=== PATIENT | male | born 1935 | race Caucasian/White ===

== ENCOUNTER 2016-06-02 05:42 | Inpatient (IN) | payer MEDICARE, BC ==
--- NOTE | ~2016-06-02 | HP ---
History And Physical [place] [address] [place]. [address] NAME: YOANDY GOODEN JR : 36 STATUS : DIS IN PAT#: [id number] AGE: 80 ADM/REG DATE : 06/02/16 MR#: [id number] REPORT SERV DATE: 07/21/16 DICTATED BY: MARJORIE ANDREWS DATE: 07/21/16 REPORT STATUS : Draft TRANSCRIBED BY: MODL DATE: 07/21/16 DATE OF ADMISSION: 06/02/2016 CHIEF COMPLAINT: Metastatic papillary thyroid carcinoma of the right neck. HISTORY OF PRESENT ILLNESS: Mr. Gooden is a 80-year-old gentleman with a long history of papillary thyroid carcinoma, initially treated with total thyroidectomy in 10/2012. He had recurrence in the left neck, treated with a left modified radical neck dissection in 04/2015. Followup to this revealed nuclear thyroid scan showing uptake in the right neck. He had followup ultrasounds to monitor the 1.6 cm right neck level 3 lymph node and once this was determined to be positive on the whole body scan and thyroglobulin levels were elevated, a needle biopsy was performed showing metastatic papillary thyroid carcinoma. He then was scheduled for right modified radical neck dissection today and then he will be admitted postoperatively for further evaluation. PAST MEDICAL HISTORY: Glaucoma, hypertension, gastroesophageal reflux, papillary thyroid carcinoma, atrial fibrillation. PAST SURGICAL HISTORY: Total thyroidectomy, heart pacemaker, cardiac bypass, hernia repair, knee and shoulder replacement. FAMILY HISTORY: None. SOCIAL HISTORY: He drinks alcohol socially. Nonsmoker. MEDICATIONS: [place] Thyroid, carvedilol, DHEA, Eliquis, finasteride, Flonase, Lasix, Levaquin, losartan, metformin, montelukast, multivitamin, mupirocin, [place], fish oil, potassium chloride, rosuvastatin, testosterone, vitamin D. ALLERGIES: DARVOCET, PENICILLIN, VICODIN. PHYSICAL EXAMINATION: GENERAL: He is a well-developed gentleman, in no acute distress. HEENT: His ears are normal. His nose has a right septal deviation. His oral cavity and oropharynx is clear. His hypopharynx, larynx, vocal folds are mobile bilaterally. NECK: Has well-healed left neck dissection, thyroidectomy incision. NEURO: Cranial nerves 2-12 are intact. HEART: Regular rate and rhythm. LUNGS: Clear to auscultation bilaterally. ABDOMEN: Soft, nontender. EXTREMITIES: Moves all extremities well. IMPRESSION: A 80-year-old male with metastatic papillary thyroid carcinoma to the right neck, status post total thyroidectomy and left modified radical neck dissection in the past. PLAN: Plan is for right modified radical neck dissection and admission for observation History And Physical [address] [place]. [address] NAME: YOANDY GOODEN JR : 36 STATUS : DIS IN PAT#: [id number] AGE: 80 ADM/REG DATE : 06/02/16 MR#: [id number] REPORT SERV DATE: 07/21/16 DICTATED BY: MARJORIE ANDREWS DATE: 07/21/16 REPORT STATUS : Draft TRANSCRIBED BY: DAYAMI DATE: 07/21/16 postoperatively. KACIE/DAYAMI Marjorie Andrews M.D. / [id number] CC: Bonnie Thomson M.D.
--- NOTE | ~2016-06-02 | OP ---
Record Of Operation [facility] [address] [place]. 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 POSTOPERATIVE DIAGNOSIS: Metastatic papillary thyroid carcinoma of the right neck. PROCEDURE PERFORMED: 1. Right modified radical neck dissection, levels 2 through 5. 2. Right transposition of cranial nerve 11. SURGEON: Marjorie Andrews M.D. LOG FEEDER: Emerson Watts M.D. ANESTHESIA: General. COMPLICATIONS: None. CONDITION: Stable to recovery. INDICATIONS: A 80-year-old male with a history of papillary thyroid carcinoma, previously treated with total thyroidectomy, central compartment dissection, and radioactive iodine therapy. He recurred in the left neck and underwent left modified radical neck dissection with sacrifice of the left internal jugular vein. He then had elevation of thyroglobulin levels and right lateral neck node identified in level 3. Needle biopsy showed papillary thyroid cancer. CT scan of the neck confirmed this location and two low level 4 lymph nodes as well. Risks benefits and alternatives to surgery were explained and he agreed. PROCEDURE IN DETAIL: The patient was identified in preoperative holding, taken back to the operating room, and placed supine on the operating room table. General anesthesia was established. He was prepped and draped in standard fashion for the operation. A time-out was called. The patient procedure were confirmed. A hockey-stick incision was performed from the right mastoid tip along the anterior trapezius muscle and into the low neck, three fingerbreadths above the clavicle. It was infiltrated subcutaneously with 1% lidocaine with 1:100,000 epinephrine. After a sterile prep, 2.5x loupe magnification and headlight illumination, the operation commenced. A 15 blade was used to make an incision through the skin and subcutaneous tissue, down to platysma. Subplatysmal flaps were elevated superiorly to the angle of mandible, medially to the midline, inferiorly to the clavicle, and laterally to the trapezius border. The fascia was then taken off the posterior border of the sternocleidomastoid muscle transecting the transverse cervical nerves along the Erb's plexus. Blunt dissection with hemostat in the area of Erb's plexus just superior and lateral revealed the spinal accessory nerve, and this is confirmed with the nerve stimulating probe, good shoulder movement. Nicola nerve dissector was used to follow the nerve down into the trapezius insertion. All of the lymphatic tissue from the nerve and inferior was dissected off the deep neck musculature, ligating the transverse cervical Record Of Operation [facility] [address] [facility] [place]. [address] NAME: YOANDY GOODEN JR : 36 STATUS : ADM IN PAT#: [id number] AGE: 80 ADM/REG DATE : 06/02/16 MR#: [id number] REPORT SERV DATE: 06/02/16 DICTATED BY: MARJORIE ANDREWS DATE: 06/02/16 REPORT STATUS : Draft TRANSCRIBED BY: MODL DATE: 06/02/16 artery and vein with hemoclips and Harmonic scalpel. The cutaneous cervical nerves were transected as well while mobilizing the lymphatics from the right supraclavicular fossa low level 5. We then found the omohyoid muscle deep in the neck and transected this providing access to low level 4 and the upper mediastinum. There were two large nodes tucked beneath the internal jugular vein at the thoracic inlet that were dissected out of this area. These lymphatic envelope was then dissected off the deep neck musculature at low level 5B and delivered underneath this sternocleidomastoid muscle. It was dissected both through the cervical rootlets again over the carotid artery and jugular vein. The lymph node of concern and level 3 dissected off the jugular vein without adhesion or difficulty. We then dissected superiorly to the spinal accessory nerve in its upper segment, dissected the lymphatics off the spinal accessory nerve, transposing it superiorly and laterally and taking these lymph nodes off the splenius capitis and levator scapulae muscle rotating over the jugular vein and then with the remainder of the specimen of levels 3, 4, and 5. The specimen was handed off the table and into levels 2, 3, 4, and 5. The wound was irrigated with saline, and bipolar cautery was used for hemostasis. A 10-Lao flat fully perforated drain was placed and secured with 3-0 Vicryl suture and the wound was closed in layers using 3-0 Vicryl suture for platysma and velma for the skin followed by Dermabond. The patient was awakened and taken to recovery in stable condition. The spinal accessory nerve stimulated at the end of the case. PH/MODL Marjorie Andrews M.D. / [id number] CC: Marjorie Andrews M.D.
[~2016-06-02 05:42] MED LIST: ANDROGEL5 TOP; ARIMIDEX1 PO; ARMOUR THYRO30 MG PO; ARMOUR THYRO60 MG PO; ARMOUR THYRO90 MG PO; ASA5GR PO; ASAB PO; ATEN25 PO; Armour Thyroid PO; BACDS PO; BEANO PO; CALTRAT600 PO; CO Q-10100 MG PO; CO Q-10200 MG PO; CO Q-1050 MG PO; COREG3 PO; COREG6 PO; COUMADIN6 MG PO; COZ25 PO; COZ50 PO; CRESTOR10 PO; CRESTOR5 MG PO; DEHA PO; DEPO-TESTOS200 MG/ML IM; DHE1 PO; DHEA 50 MG PO; ELIQUIS 5 MG TAB5 MG PO; FISH OIL PO; FISH-EPA1000 MG PO; GLUCPH PO; HALF81 PO; HGH IM; IMDUR30 PO; JANTOVEN6 MG PO; K-TABS10 MEQ PO; KLOR-CON 1010 MEQ PO; L20 PO; LODRANE OR; LODRANE PO; LOVENOX; LOVENOX80 SC; MAGTRATE500 MG PO; METHOC500B PO; MICARDIS40 PO; MULTAQ PO; MULTIPLE VIT PO; MULTIVIT/MIN PO; MULTIVITAMIN GUMMY PO; MULTIVITAMIN PO; MVI PO; NORV5 PO; OMEGA 3550 MG PO; PCET PO; PEPTO-BISMOL TA1 TAB PO; PRILO PO; PROSCAR5 PO; PROTONIX PO; Q-SORB50 MG PO; RANITIDINE300 MG PO; SINGULAIR1 PO; SLO-NIACIN500 MG PO; SYN.15 PO; T PO; TESTOST ENA200 MG/ML IM; TESTOSTERONE 50 MG PO; TESTOSTERONE IM; TESTOSTERONE INJ IM; THERAPEUTIC PO; ULTRAM50 PO; VITAMIN D1000 UNI1 PO; VITAMIN D31000 UNIT PO; WARFARIN 6 MG PO; ZANAFLEX 4 MG TA4 MG PO; ZANTAC300 MG PO; [UNRECOGNIZED DRUG - CODE] IM; [UNRECOGNIZED DRUG - MIXTURE] PO; [UNRECOGNIZED DRUG - OTHER] PO; [UNRECOGNIZED DRUG - OTHER] PO; [UNRECOGNIZED DRUG - OTHER] PO; [UNRECOGNIZED DRUG - OTHER] PO; [UNRECOGNIZED DRUG - OTHER] PO; [UNRECOGNIZED DRUG - OTHER] PO; [UNRECOGNIZED DRUG - OTHER] TD; [UNRECOGNIZED DRUG - OTHER] TOP; [UNRECOGNIZED DRUG - REMARK] IM
[2016-06-02 06:27] LABS: BASOPHILS 0.8 %; BASOPHILS ABSOLUTE 0.04 10/3/uL (0.0-0.16); EOSINOPHILS 4.4 %; EOSINOPHILS ABSOLUTE 0.23 10/3/uL (0.0-0.53); HEMATOCRIT 42.9 % (40.0-51.0); HEMOGLOBIN 13.7 g/dL (13.6-17.8); IMMATURE GRANULOCYTES 0.2 %; IMMATURE GRANULOCYTES ABSOLUTE 0.01 10/3/uL (0.0-0.11); LYMPHOCYTES 16.8 %; LYMPHOCYTES ABSOLUTE 0.88 10/3/uL (0.67-4.30); MEAN CORPUS HGB CONC 31.9 g/dL (32.0-36.0); MEAN CORPUSCULAR HEMOGLOB 28.8 pg (26.0-34.0); MEAN CORPUSCULAR VOLUME 90.3 fL (80-100); MEAN PLATELET VOLUME 10.8 fL (9.2-13.0); MONOCYTES 12.2 %; MONOCYTES ABSOLUTE 0.64 10/3/uL (0.21-1.20); NEUTROPHILS 65.6 %; NEUTROPHILS ABSOLUTE 3.43 10/3/uL (2.02-8.40); PLATELET COUNT 115 10/3/uL (150-400); RBC DISTRIBUTION WIDTH 16.7 % (12.0-16.0); RED CELL COUNT 4.75 10/6/uL (4.7-6.1); WHITE BLOOD CELLS 5.2 10/3/uL (4.5-10.5)
[2016-06-02 06:28] LABS: MANUAL DIFF NO %
[2016-06-02 06:32] LABS: PARTIAL THROMBO TIME 43.4 SEC (22.5-37.2)
[2016-06-02 06:42] LABS: BUN (BLOOD UREA NITROGEN) 23 MG/DL (6-23); CALCIUM, SERUM 8.5 MG/DL (8.5-10.4); CHLORIDE, SERUM 107 MMOL/L (96-112); CO2 (CARBON DIOXIDE) 24 MMOL/L (24-34); CREATININE 1.48 MG/DL (0.70-1.30); GFR AFRICAN AMERICAN 51 ML/MIN (>=60); GFR NON AFRICAN AMERICAN 44 ML/MIN (>=60); GLUCOSE, SERUM 102 MG/DL (60-99); POTASSIUM, SERUM 4.1 MMOL/L (3.5-5.3); SODIUM, SERUM 142 MMOL/L (135-148)
[2016-09-27] MEDS ORDERED: SINGULAIR1 PO (14:38)
== END 2016-06-04 09:54 | disposition home or self-care (01) | DRG 630 ==
LOC: SDC/OF 05:42 → PACU 12:27 → IMCU 17:18
PROVIDERS: Specialist
PROC: 07T10ZZ Resection of Right Neck Lymphatic, Open Approach (ICD-10-PCS; principal; 2016-06-02 07:30)
DX: C73 Malignant neoplasm of thyroid gland (principal); E11.9 Type 2 diabetes mellitus without complications; I10 Essential (primary) hypertension; I25.10 Atherosclerotic heart disease of native coronary artery without angina pectoris; Z95.1 Presence of aortocoronary bypass graft
CPT/HCPCS: 36415; 70491; 80048; 82962; 85025; 85730; 86850; 86900; 86901; 88305; 88307; 93005; 94640; A9270-GY; J0690; J2250; J2270; J2370; J2405; J2710; J3010; Q9967

== ENCOUNTER 2016-07-13 09:56 | Inpatient (IN) | payer MEDICARE, BC ==
--- NOTE | ~2016-07-13 | HP ---
History And Physical [place] [id number] [facility] [place]. [address] NAME: YOANDY GOODEN JR : 36 STATUS : ADM IN PAT#: [id number] AGE: 80 ADM/REG DATE : 07/13/16 MR#: [id number] REPORT SERV DATE: 07/13/16 DICTATED BY: REBEKA CARREON DATE: 07/13/16 REPORT STATUS : Draft TRANSCRIBED BY: MODL DATE: 07/13/16 DATE OF ADMISSION: 07/13/2016 CHIEF COMPLAINT: Progressive shortness of breath getting worse over the last couple of weeks and intermittent chest pain. HISTORY OF PRESENT ILLNESS: This is a very pleasant 80-year-old gentleman. He is a patient of Dr. Soria, primary care provider. 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 He had a CABG x5 [place] [address] Butcher. He did have congestive heart failure by echo in 2016. His ejection fraction was 40% to 45%. He has a biventricular pacer in place, also history of hypertension, renal artery stenosis, status post prior stenting in 2016. He does have hyperlipidemia, AODM, and thyroid cancer, followed by Dr. Anthony Goldman in May. He had a metastatic papillary thyroid cancer, which a radical neck dissection performed in May, presenting today to [facility] with progressive shortness of breath for a couple of weeks and intermittent chest pain. He says that his shortness of breath has become progressively worse to the point that now he has to sleep sitting in his bed and he has intermittent episodes of PND with orthopnea and some intermittent episodes of chest pain with progressive weakness as well. He did not have any nausea, vomiting, dizziness, presyncopal, or syncopal episodes, but he is more short of breath with exertion and at rest right now and very weak. He saw Dr. Soria last week in his office and he has been scheduled for a stress test done as an outpatient, but the patient's shortness of breath become so progressively worse to the point that he needed to come today to [facility]. He has a dry cough, but no sputum production. No fever. No again presyncopal or syncopal episodes. No palpitations. No other complaints. The patient currently is treated for a cyst on the right knee. He did have 1 small VacPac and cleaning at the [facility], but no other complaints. After initial evaluation in the emergency room and a 2D echo that has been performed in the emergency room today with a reported preliminary ejection fraction of about 35%, the patient has been admitted to Hospitalist Service for further evaluation and treatment. PAST MEDICAL HISTORY: Significant for coronary artery disease, status post CABG in 2006, atrial fibrillation on Eliquis, hypertension, peripheral vascular disease with left renal artery stent in 2016, hypertension, dyslipidemia, biventricular pacer with prior ejection fraction 40% to 45% by echo in 2016, also history of thyroid cancer, followed by Dr. Goldman. PAST SURGICAL HISTORY: Includes CABG x5, also biventricular pacer, hernia repair, retinal repair, bilateral cataracts, left total knee replacement, left total shoulder replacement, and thyroidectomy with modified radial nerve dissection. SOCIAL HISTORY: The patient is denying tobacco, alcohol, or any IV drugs. FAMILY HISTORY: Significant for diabetes. MEDICATIONS: Listed at his home include Eliquis, aspirin, Coreg, vitamin D, Proscar, Lasix, Levaquin, metformin, Singulair, multivitamin, dehydroepiandrosterone, Crestor, [place] History And Physical [address] [address] NAME: YOANDY GOODEN JR : 36 STATUS : ADM IN [facility]#: [id number] AGE: 80 ADM/REG DATE : 07/13/16 MR#: [id number] REPORT SERV DATE: 07/13/16 DICTATED BY: REBEKA CARREON DATE: 07/13/16 REPORT STATUS : Draft TRANSCRIBED BY: MODL DATE: 07/13/16 Thyroid, Ultram, krill oil, CoQ10, Pro-X10, as well as testosterone. REVIEW OF SYSTEMS: A 14-point review of systems has been obtained and pertinent positive has been listed into the history of present illness. Otherwise, negative except those underlying above. ALLERGIES: THE PATIENT IS ALLERGIC TO PENICILLIN, HYDROCODONE, PROPOXYPHENE, AND STRAWBERRY. PHYSICAL EXAMINATION: VITAL SIGNS: The patient is currently afebrile. His blood pressure 176/86, heart rate 60, respiratory rate 23, and saturating 96% on room air. GENERAL: He is a very pleasant, very cooperative, well-developed well-nourished gentleman, in no acute distress. He is alert and oriented x3. Nonfocal. He follows commands appropriately. HEENT: Trach is midline. No thyromegaly. No lymphadenopathy. No JVD. No bruits appreciated. CHEST: Shows bilateral air entry. Few bibasilar crackles. No wheezes or rhonchi appreciated. CARDIOVASCULAR: Regular rate and rhythm. S1, S2 positive. No S3, no S4. There is 2/6 systolic murmur audible at the apex likely mitral regurg. ABDOMEN: Soft, nontender. No guarding. No rebound. EXTREMITIES: No clubbing, cyanosis, or edema. NEUROLOGIC: The patient is alert and oriented x3. Nonfocal. He follows his commands appropriately. LABORATORY DATA: Labs from today include sodium 139, potassium 4.5, chloride is 104, CO2 of 26, BUN 30, creatinine 1.20, glucose is 102. Liver function test shows an ALT of 21, AST 24, and his troponin less than 0.02. His BNP 379.6. His white count is 9.9, hemoglobin 14.8, hematocrit 44.8, and platelets 102. His INR is 1.6. His EKG shows a paced rhythm. Chest x-ray does show bilateral mild congestive changes noted and prior CABG. ASSESSMENT AND PLAN: This is a very pleasant 80-year-old gentleman with progressive shortness of breath and intermittent chest pain with: 1. Acute on chronic congestive heart failure in a patient with progressive deterioration of his ejection fraction currently preliminary report of 35% by echo performed today. 2. Chest pain. 3. Hypertension. 4. Atrial fibrillation. 5. Dyslipidemia. 6. Mitral regurgitation. 7. Benign prostatic hypertrophy. 8. History of thyroid cancer, status post thyroidectomy and recent radical neck History And Physical [address] [address] NAME: YOANDY GOODEN JR : 37 STATUS : ADM IN [facility]#: [id number] AGE: 80 ADM/REG DATE : 07/13/16 MR#: [id number] REPORT SERV DATE: 07/13/16 DICTATED BY: REBEKA CARREON DATE: 07/13/16 REPORT STATUS : Draft TRANSCRIBED BY: MODL DATE: 07/13/16 dissection. 9. Degenerative joint disease. 10.Osteoarthritis. PLAN: 1. The patient is going to be admitted to monitored bed. We are going to place the patient on a nitroglycerin paste, IV diuretics, rule him out for CT by serial cardiac enzymes, serial EKG. Get a 2D echo report. Consult Cardiology Dr. Moran for further recommendation. Interrogate his pacemaker as well. We will rule him out for CT by serial cardiac enzymes, serial EKG, and consult Cardiology for further recommendation. 2. History of atrial fibrillation. We are going to continue his Coreg. Interrogate the pacemaker. Continue Eliquis and await further Cardiology recommendation. 3. Hypertension. We will continue his Coreg and provide p.r.n. hydralazine as needed. We are going to order a renal duplex ultrasound to check for patency of the renal stent. 4. Dyslipidemia. We will continue statin. 5. We will provide reasonable pain and nausea control as well as GI and DVT prophylaxis with SCDs since the patient is already on Eliquis. Further workup and recommendation pending above. It is also worthwhile to note that the patient is going to be followed by Dr. Govind Rockwell. CF/MODL Rebeka Carreon M.D. / [id number] CC: Bonnie Ortez M.D.
--- NOTE | ~2016-07-13 | CN ---
Consultation Report [facility] [address] [place]. [address] NAME: YOANDY GOODEN JR : 36 STATUS : ADM IN PAT#: [id number] AGE: 80 ADM/REG DATE : 07/13/16 MR#: [id number] REPORT SERV DATE: 07/14/16 DICTATED BY: MATEUS OKEEFE DATE: 07/13/16 REPORT STATUS : Draft TRANSCRIBED BY: MODL DATE: 07/13/16 CARDIOLOGY CONSULTATION DATE OF CONSULTATION: REFERRING REASON: Shortness of breath and heart failure exacerbation. HISTORY OF PRESENT ILLNESS: This is a pleasant 80 years old white gentleman, well known to Dr. Aniceto Moran from [facility], who has been complaining on worsening dyspnea on exertion with moderate activity over the last several months. He was referred by Dr. Soria to have echocardiogram, but was in the meantime admitted to Hospitalist Service for failure to thrive over the last 10 days, reportedly losing 14 pounds. He did not have an appetite. He denies signs of PND. He denies lower extremity edema. He denies any chest pain or palpitations. He was found to have mild congestion on the chest x-ray. Brain natriuretic peptide only 379. Echocardiogram interpreted by colleague, Dr. López, revealed EF of 35% compared to 40% in 2016 with biatrial enlargement and moderate mitral regurgitation which is unchanged to previous echocardiogram. The patient received intravenous Lasix and is feeling well. He is able to lie flat. His first cardiac enzymes are negative. He is a poor historian but denies any fever, chills, or other symptoms. Of note, the patient has a history of throat cancer, treated with radical neck surgery in 2012. He lives reportedly independently and walks without any support. The rest of review of systems is negative. PAST MEDICAL HISTORY: 1. Coronary artery disease with history of five-vessel CABG in 2006. 2. Negative nuclear cardiac stress test with ischemia in 2016. 3. Ischemic cardiomyopathy with EF 40% in 2016, now 35%. 4. Moderate mitral valve regurgitation by echocardiogram. 5. Mild ascending aortic aneurysm measuring 4.5 cm in 2016. 6. Chronic atrial fibrillation. 7. Chronic anticoagulation. 8. Status post BiV pacemaker in place. 9. History of throat cancer, treated with radical neck surgery in [address] Anthony Goldman. 10.Hypertension. 11.Hypothyroidism. 12.History of renal artery stenting by Dr. Chaves in 2016. 13.History of chronic kidney disease. 14.No ARB or SILVIA inhibitor due to tendency to hypotension. ALLERGIES: PENICILLIN AND DARVOCET. SOCIAL HISTORY: The patient is reportedly single. He has a girlfriend. He walks without any support. Denies drinking alcohol, uses street drugs. He does not smoke. Consultation Report [address] [place]. [address] NAME: YOANDY GOODEN JR : 37 STATUS : ADM IN PAT#: [id number] AGE: 80 ADM/REG DATE : 07/13/16 MR#: [id number] REPORT SERV DATE: 07/14/16 DICTATED BY: MATEUS OKEEFE DATE: 07/13/16 REPORT STATUS : Draft TRANSCRIBED BY: DAYAMI DATE: 07/13/16 FAMILY HISTORY: Negative for sudden cardiac , premature coronary artery disease in the family. PHYSICAL EXAMINATION: GEN - No acute distress. VITAL SIGNS: Blood pressure 150/74, heart rate 59 and regular, ventricularly paced. HEENT - Pupils reactive to light and accommodation. Moist mucosa membrane. NECK: No JVD. Normal carotid upstroke. No carotid bruits. LUNGS: Decreased breath sounds bibasilar, but no crackles. COR: Normal S1, S2. No S3 or S4. No significant rub or murmurs. ABD: Obese, distended, nontender. EXT: Lower extremity, decreased pedal pulses bilaterally with trace edema around the ankles. SKIN: Warm with normal turgor. MS - No kyphosis. NEURO/PSY - Alert and oriented. Nonfocal. HOME MEDICATIONS: Eliquis 5 mg twice a day, aspirin 81 mg once a day, Coreg 6.25 mg twice a day, Proscar 5 mg once a day, Lasix 20 mg as needed, Levaquin started on 07/12/2016 by his PCP, metformin 500 mg at bedtime, Singulair 10 mg once a day, Crestor 5 mg once a day, Synthroid 90 mcg once a day, and Ultram as needed. DATA: CBC and electrolytes within normal limits. Troponin x1 is negative. INR 1.6. Chest x-ray: Status post CABG, mild congestion. Echocardiogram as above. Brain natriuretic peptide 379. On monitor, he was in ventricular paced rhythm. Electrocardiogram is missing from the chart. ASSESSMENT AND PLAN: 1. Progressive failure to thrive of multifactorial etiology. 2. Dyspnea on exertion of multifactorial etiology. 3. Congestive heart failure, likely acute on chronic. 4. Ischemic cardiomyopathy. 5. Moderate mitral valve regurgitation. 6. History of throat cancer. The patient will be on strict I's and O's. We will continue intravenous Lasix in the attempt to achieve dry weight. We will follow his electrolytes closely. There are no signs of PND or obvious fluid overload on physical exam. He will continue chronic anticoagulation with Eliquis with chronic atrial fibrillation. His permanent pacemaker has been functioning well, last checked six months ago. There is nothing suggesting acute coronary syndrome. His failure to thrive may be also related to his history of cancer. Dr. Moran will see patient in the morning. Consultation Report [address] [place]. [address] NAME: YOANDY GOODEN JR : 37 STATUS : ADM IN [facility]#: [id number] AGE: 80 ADM/REG DATE : 07/13/16 MR#: [id number] REPORT SERV DATE: 07/14/16 DICTATED BY: MATEUS OKEEFE DATE: 07/13/16 REPORT STATUS : Draft TRANSCRIBED BY: DAYAMI DATE: 07/13/16 ROMMEL/DAYAMI Mateus Okeefe M.D. / [id number] CC: Bonnie Ortez M.D.
--- NOTE | ~2016-07-13 | DS ---
Discharge Summary [facility] [address] [address] NAME: YOANDY GOODEN JR : 37 STATUS : DIS IN PAT#: [id number] AGE: 80 ADM/REG DATE : 07/13/16 MR#: [id number] REPORT SERV DATE: 07/18/16 DICTATED BY: LINDSEY ROCKWELL DATE: 07/17/16 REPORT STATUS : Draft TRANSCRIBED BY: MODL DATE: 07/17/16 ADMISSION DATE: 07/13/2016 DISCHARGE DATE: 07/17/2016 DISCHARGE DIAGNOSES: 1. Acute on chronic systolic congestive heart failure with left ventricular ejection fraction by echocardiography of 34%, compared to 40% to 45%, 12/29/2015. 2. Right ventricular dysfunction. 3. Mild aortic regurgitation. 4. Moderate mitral regurgitation. 5. Chest pain. 6. Coronary artery disease, status post CABG, 2005, with cardiac catheterization this admission, 07/16/2016, demonstrating severe calcific [place] coronary disease. 4/4 patent bypass grafts. [id number] anastomotic narrowing and an SVG to the first diagonal, a small-caliber runoff vessel. LVEDP 12 to 14. Medical management and risk factor modification recommended. 7. Chronic atrial fibrillation, on Eliquis, status post biventricular pacemaker. 8. Hypertension with history of left renal artery stenosis post stenting, superior left renal artery with 60% obstruction suggested per Doppler imaging this admission. 9. Weight loss with failure to thrive. 10.Hyperlipidemia. 11.Chronic kidney disease 3. 12.Thoracic aortic aneurysm. 13.Known carotid disease, left greater than right, followed by Dr. Juaquin Barrientos. 14.Metastatic papillary thyroid cancer, status post total thyroidectomy with central node dissection, 10/2012, with subsequent high at 131. Status post left modified radical neck dissection, levels 2 through 5, 05/05/2015. Status post right modified radical neck dissection, levels 2 through 5, 06/02/2016. 15.History of esophageal stricture, post dilatation. 16.History of diverticulosis and colon polyps per 2013 colonoscopy. 17.Chronic thrombocytopenia. 18.Voiding dysfunction. 19.Recent right knee cyst removal at [facility] with postop wound. 20.SILVIA inhibitor and ARB intolerant because of hypotension. OPERATIONS AND PROCEDURES: Coronary arteriography, 07/16/2016. PRESENT ILLNESS: This is a 80-year-old white male, regular patient of Dr. Percy Soria, who was triaged in the emergency room on 07/13/2016 at 0956 hours complaining of shortness of breath. Admission vital signs were blood pressure 176/86, temperature 97.8, pulse 60, respirations 23, and O2 saturation 96%. A chest x-ray was done in the emergency room. It was thought to show congestive changes. He was referred to the Hospitalist Service. He was seen by Dr. Rebeka Booker and admitted as described on admission history and physical examination. Discharge Summary [address] [address] NAME: YOANDY GOODEN JR : 37 STATUS : DIS IN PAT#: [id number] AGE: 80 ADM/REG DATE : 07/13/16 MR#: [id number] REPORT SERV DATE: 07/18/16 DICTATED BY: LINDSEY ROCKWELL DATE: 07/17/16 REPORT STATUS : Draft TRANSCRIBED BY: MODL DATE: 07/17/16 ADDITIONAL HISTORY: Per Dr. Booker noting orthopnea, paroxysmal nocturnal dyspnea, chest pain, weakness, weight loss, and failure to thrive. PHYSICAL EXAMINATION: Per Dr. Booker. ADMISSION LABORATORY: Per Dr. Booker. HOSPITAL COURSE: He was admitted by Dr. Booker as described with 1. Acute on chronic systolic congestive heart failure with a drop in his ejection fraction by echocardiography as noted. 2. Chest pain. All occurring in the setting of the above-mentioned comorbidities. He was admitted to [address] [place] [address]. He was placed on nitroglycerin paste and IV diuretics. Cardiology consultation was obtained. He was initially seen by Dr. Woods and then by Dr. Moran. His hospitalist care was assumed by the undersigned. His pacemaker was interrogated and its function was normal. Serial troponins were trended and were all less than 0.02. With IV diuretic therapy, he diuresed approximately 3.3 pounds. His dyspnea improved. His BNP fell from 379.6 to 55. Based on his presentation, past medical history, and echocardiography, coronary arteriography was recommended. It was done on 07/16/2016, by Dr. Castro with findings as noted above. Post procedure, he did not have any bump in his creatinine with a discharge creatinine of 1.22. Based on the above, it was felt that his decompensation was related to acute on chronic congestive heart failure. It was felt he should continue on his current medical therapy with the addition of low-dose Imdur. He is currently not a candidate for SILVIA or ARB because of previously documented hypotension with the same. In addition, he has what seems to be recurrent left renal artery stenosis by imaging. It was recommended he follow with Dr. Chaves in the office to readdress this. Today, it was felt he has achieved a level of improvement and stability where he can be safely discharged home to be seen by Dr. Soria next week. He will also follow up with Dr. Moran, Dr. Chaves, Dr. Goldman, and Dr. Barrientos. DISCHARGE MEDICATIONS: Pending followup: Eliquis 5 mg twice daily; aspirin 81 mg daily; Discharge Summary [address] [address] NAME: YOANDY GOODEN JR : 37 STATUS : DIS IN PAT#: [id number] AGE: 80 ADM/REG DATE : 07/13/16 MR#: [id number] REPORT SERV DATE: 07/18/16 DICTATED BY: LINDSEY ROCKWELL DATE: 07/17/16 REPORT STATUS : Draft TRANSCRIBED BY: DAYAMI DATE: 07/17/16 carvedilol 6.25 mg twice daily; vitamin D, 2000 units twice daily; Proscar 5 mg daily; Lasix 20 mg daily for weight gain of 2 pounds; Imdur 30 mg daily; Singulair 10 mg daily; multivitamin daily; [place] Thyroid 90 mg daily, dose adjustment per Dr. Goldman; Krill oil and Q10 daily; Pro-X10 daily; tramadol 50 mg every 4 to 6 hours as needed; DHEA 1 tablet daily; Crestor 5 mg daily; and topical testosterone daily. He will not take metformin at this time, noting last hemoglobin A1c 5.2. He was asked to restrict his salt intake and fluid intake to 1500 mL in a 24-hour period. Discharge time, greater than 30 minutes. DD/MODL Lindsey Rockwell M.D. / [id number] CC: Bonnie Ortez M.D. Daniel Fisher Jr., M.D. Cristina Florea, M.D. Brian Negus, M.D. Gregory Keith Bruce, M.D. Peter Hunt, M.D. Van Stephen Monroe Jr., M.D.
[2016-07-13 10:26] LABS: BASOPHILS 0.2 %; BASOPHILS ABSOLUTE 0.02 10/3/uL (0.0-0.16); EOSINOPHILS 2.3 %; EOSINOPHILS ABSOLUTE 0.23 10/3/uL (0.0-0.53); HEMATOCRIT 44.8 % (40.0-51.0); HEMOGLOBIN 14.8 g/dL (13.6-17.8); IMMATURE GRANULOCYTES 0.1 %; IMMATURE GRANULOCYTES ABSOLUTE 0.01 10/3/uL (0.0-0.11); LYMPHOCYTES 7.9 %; LYMPHOCYTES ABSOLUTE 0.78 10/3/uL (0.67-4.30); MEAN CORPUSCULAR HEMOGLOB 29.1 pg (26.0-34.0); MEAN CORPUSCULAR VOLUME 88.2 fL (80-100); MEAN PLATELET VOLUME 11.5 fL (9.2-13.0); MONOCYTES 9.4 %; MONOCYTES ABSOLUTE 0.93 10/3/uL (0.21-1.20); NEUTROPHILS 80.1 %; NEUTROPHILS ABSOLUTE 7.94 10/3/uL (2.02-8.40); PLATELET COUNT 102 10/3/uL (150-400); RBC DISTRIBUTION WIDTH 20.6 % (12.0-16.0); RED CELL COUNT 5.08 10/6/uL (4.7-6.1); WHITE BLOOD CELLS 9.9 10/3/uL (4.5-10.5)
[2016-07-13 10:27] LABS: MANUAL DIFF NO %
[2016-07-13 10:34] LABS: INTERNATIONAL NORMAL RATI 1.6 UNITS (-); PARTIAL THROMBO TIME 50.2 SEC (22.5-37.2); PROTIME (NOT ORD) 18.9 SEC (12.0-14.5)
[2016-07-13 10:43] LABS: BUN (BLOOD UREA NITROGEN) 30 MG/DL (6-23); CALCIUM, SERUM 9.1 MG/DL (8.5-10.4); CHEST PAIN PROFILE TAT 0 Hrs 21 Mins; CHLORIDE, SERUM 104 MMOL/L (96-112); CO2 (CARBON DIOXIDE) 26 MMOL/L (24-34); GFR AFRICAN AMERICAN 66 ML/MIN (>=60); GFR NON AFRICAN AMERICAN 57 ML/MIN (>=60); GLUCOSE, SERUM 102 MG/DL (60-99); POTASSIUM, SERUM 4.5 MMOL/L (3.5-5.3); SODIUM, SERUM 139 MMOL/L (135-148); TROPONIN I <0.02 NG/ML (<0.05)
[2016-07-13 10:46] LABS: ANISOCYTOSIS 1+ (5-10/OIF) (0-5/OIF); PLATELET ESTIMATE SLT DEC (ADEQUATE)
[2016-07-13 11:22] LABS: B NATRIURETIC PEPTIDE (BNP) 379.6 PG/ML (< 100.0)
[2016-07-13 15:36] LABS: TROPONIN I <0.02 NG/ML (<0.05)
[2016-07-13] MEDS ORDERED: ASAB PO (15:59)
[2016-07-13] MEDS ORDERED: PROSCAR5 PO (16:00)
[2016-07-13] MEDS ORDERED: COREG6 PO (16:00)
[2016-07-13] MEDS ORDERED: L20 PO (16:01)
[2016-07-13] MEDS ORDERED: GLUCPH PO (16:02)
[2016-07-13] MEDS ORDERED: SINGULAIR1 PO (16:02)
[2016-07-13] MEDS ORDERED: ELIQUIS 5 MG TAB5 MG PO (16:02)
[2016-07-13] MEDS ORDERED: ULTRAM50 PO (16:03)
[2016-07-13] MEDS ORDERED: MULTIVITAMI1 PO (16:04)
[2016-07-13] MEDS ORDERED: DHE1 PO (16:05)
[2016-07-13] MEDS ORDERED: CRESTOR5 MG PO (16:05)
[2016-07-13] MEDS ORDERED: ARMOUR THYRO90 MG PO (16:06)
[2016-07-13] MEDS ORDERED: ANDROGEL1 % TOP (16:07)
[2016-07-13] MEDS ORDERED: LEVAQUIN5T PO (16:09)
[2016-07-13 19:03] LABS: FREE T4 0.93 NG/DL (0.76-1.46); PHOSPHORUS, SERUM 3.5 MG/DL (2.5-4.5)
[2016-07-13 19:07] LABS: CK-MB 0.8 NG/ML; CPK 46 U/L (0-200)
[2016-07-13 19:39] LABS: PROCALCITONIN < 0.05 ng/mL (<0.5)
[2016-07-13 22:23] LABS: GLYCOHEMOGLOBIN (HbA1c) 5.2 % (4.7-6.1)
[2016-07-14 00:03] LABS: CPK 43 U/L (0-200); TROPONIN I <0.02 NG/ML (<0.05)
[2016-07-14 00:04] LABS: CK-MB 0.7 NG/ML
[2016-07-14 06:17] LABS: BASOPHILS 0.2 %; BASOPHILS ABSOLUTE 0.01 10/3/uL (0.0-0.16); EOSINOPHILS 3.6 %; EOSINOPHILS ABSOLUTE 0.21 10/3/uL (0.0-0.53); HEMATOCRIT 41.2 % (40.0-51.0); HEMOGLOBIN 13.7 g/dL (13.6-17.8); IMMATURE GRANULOCYTES 0.2 %; IMMATURE GRANULOCYTES ABSOLUTE 0.01 10/3/uL (0.0-0.11); LYMPHOCYTES ABSOLUTE 0.92 10/3/uL (0.67-4.30); MEAN CORPUS HGB CONC 33.3 g/dL (32.0-36.0); MEAN CORPUSCULAR HEMOGLOB 28.6 pg (26.0-34.0); MEAN PLATELET VOLUME 10.8 fL (9.2-13.0); MONOCYTES 10.1 %; MONOCYTES ABSOLUTE 0.58 10/3/uL (0.21-1.20); NEUTROPHILS 69.9 %; NEUTROPHILS ABSOLUTE 4.03 10/3/uL (2.02-8.40); PLATELET COUNT 102 10/3/uL (150-400); RBC DISTRIBUTION WIDTH 20.3 % (12.0-16.0); RED CELL COUNT 4.79 10/6/uL (4.7-6.1)
[2016-07-14 06:20] LABS: MANUAL DIFF NO %; WHITE BLOOD CELLS 5.8 10/3/uL (4.5-10.5)
[2016-07-14 06:26] LABS: INTERNATIONAL NORMAL RATI 1.7 UNITS (-)
[2016-07-14 06:30] LABS: CHLORIDE, SERUM 104 MMOL/L (96-112); CO2 (CARBON DIOXIDE) 23 MMOL/L (24-34); CREATININE 1.25 MG/DL (0.70-1.30); GFR AFRICAN AMERICAN 63 ML/MIN (>=60); GFR NON AFRICAN AMERICAN 54 ML/MIN (>=60); GLUCOSE, SERUM 107 MG/DL (60-99); POTASSIUM, SERUM 3.9 MMOL/L (3.5-5.3); SODIUM, SERUM 140 MMOL/L (135-148)
[2016-07-14 06:31] LABS: BUN (BLOOD UREA NITROGEN) 35 MG/DL (6-23)
[2016-07-14 08:22] LABS: CPK 41 U/L (0-200); TROPONIN I <0.02 NG/ML (<0.05)
[2016-07-14 08:23] LABS: CK-MB 0.5 NG/ML
[2016-07-14 12:34] LABS: FERRITIN 115 NG/ML (26-388); IRON BINDING CAPACITY 357 MCG/DL (250-450); IRON, SERUM 62 MCG/DL (35-150)
[2016-07-14 12:37] LABS: RETICULOCYTE COUNT 1.9 % (0.5-2.5); RETICULOCYTE COUNT ABSOLUTE 93.5 10/3/uL (20.2-119.8)
[2016-07-14 16:46] LABS: ASCORBIC ACID (UR NOT ORDER) NEG (NEG); BILIRUBIN, URINE NEGATIVE (NEG); KETONE, URINE NEGATIVE (NEG); LEUKOCYTE ESTERASE(NOT OR NEG (NEG); WBC (NOT ORDERED) (RFLEX) < 1 (0-5)
[2016-07-15 06:12] LABS: CALCIUM, SERUM 8.8 MG/DL (8.5-10.4); CHLORIDE, SERUM 102 MMOL/L (96-112); CO2 (CARBON DIOXIDE) 23 MMOL/L (24-34); GFR AFRICAN AMERICAN 55 ML/MIN (>=60); GFR NON AFRICAN AMERICAN 47 ML/MIN (>=60); GLUCOSE, SERUM 96 MG/DL (60-99); POTASSIUM, SERUM 4.2 MMOL/L (3.5-5.3); SODIUM, SERUM 138 MMOL/L (135-148)
[2016-07-15 06:14] LABS: BUN (BLOOD UREA NITROGEN) 49 MG/DL (6-23)
[2016-07-15 06:19] LABS: BASOPHILS 0.3 %; BASOPHILS ABSOLUTE 0.02 10/3/uL (0.0-0.16); EOSINOPHILS 5.8 %; EOSINOPHILS ABSOLUTE 0.36 10/3/uL (0.0-0.53); HEMATOCRIT 40.8 % (40.0-51.0); HEMOGLOBIN 13.4 g/dL (13.6-17.8); LYMPHOCYTES 14.9 %; LYMPHOCYTES ABSOLUTE 0.92 10/3/uL (0.67-4.30); MEAN CORPUS HGB CONC 32.8 g/dL (32.0-36.0); MEAN CORPUSCULAR HEMOGLOB 28.5 pg (26.0-34.0); MEAN CORPUSCULAR VOLUME 86.6 fL (80-100); MEAN PLATELET VOLUME 11.7 fL (9.2-13.0); MONOCYTES 14.1 %; MONOCYTES ABSOLUTE 0.87 10/3/uL (0.21-1.20); NEUTROPHILS 64.9 %; NEUTROPHILS ABSOLUTE 4.01 10/3/uL (2.02-8.40); PLATELET COUNT 100 10/3/uL (150-400); RBC DISTRIBUTION WIDTH 20.4 % (12.0-16.0); RED CELL COUNT 4.71 10/6/uL (4.7-6.1); WHITE BLOOD CELLS 6.2 10/3/uL (4.5-10.5)
[2016-07-15 06:20] LABS: MANUAL DIFF NO %
[2016-07-15 07:19] LABS: ANISOCYTOSIS 1+ (5-10/OIF) (0-5/OIF); PLATELET ESTIMATE DEC (ADEQUATE)
[2016-07-16 05:17] LABS: INTERNATIONAL NORMAL RATI 1.3 UNITS (-)
[2016-07-16 05:20] LABS: PROTIME (NOT ORD) 16.5 SEC (12.0-14.5)
[2016-07-16 05:22] LABS: BUN (BLOOD UREA NITROGEN) 48 MG/DL (6-23); CALCIUM, SERUM 8.6 MG/DL (8.5-10.4); CHLORIDE, SERUM 105 MMOL/L (96-112); CHOL/HDL RATIO(NOT ORDER) 2.8 (0-5); CO2 (CARBON DIOXIDE) 22 MMOL/L (24-34); CREATININE 1.33 MG/DL (0.70-1.30); GFR AFRICAN AMERICAN 59 ML/MIN (>=60); GFR NON AFRICAN AMERICAN 50 ML/MIN (>=60); GLUCOSE, SERUM 101 MG/DL (60-99); HDL CHOLESTEROL 32 MG/DL (> 39); LDL CHOLESTEROL 44 MG/DL (< 130); NON-HDL CHOLESTEROL 57 MG/DL (< 160); POTASSIUM, SERUM 4.2 MMOL/L (3.5-5.3); SODIUM, SERUM 141 MMOL/L (135-148); TRIGLYCERIDE 65 MG/DL (< 150)
[2016-07-16 05:26] LABS: BASOPHILS 0.2 %; BASOPHILS ABSOLUTE 0.01 10/3/uL (0.0-0.16); EOSINOPHILS 6.5 %; EOSINOPHILS ABSOLUTE 0.38 10/3/uL (0.0-0.53); HEMATOCRIT 40.1 % (40.0-51.0); HEMOGLOBIN 13.6 g/dL (13.6-17.8); IMMATURE GRANULOCYTES 0.2 %; IMMATURE GRANULOCYTES ABSOLUTE 0.01 10/3/uL (0.0-0.11); LYMPHOCYTES 14.5 %; LYMPHOCYTES ABSOLUTE 0.85 10/3/uL (0.67-4.30); MEAN CORPUS HGB CONC 33.9 g/dL (32.0-36.0); MEAN CORPUSCULAR HEMOGLOB 29.2 pg (26.0-34.0); MEAN CORPUSCULAR VOLUME 86.2 fL (80-100); MEAN PLATELET VOLUME 11.3 fL (9.2-13.0); MONOCYTES 13.1 %; MONOCYTES ABSOLUTE 0.77 10/3/uL (0.21-1.20); NEUTROPHILS 65.5 %; NEUTROPHILS ABSOLUTE 3.86 10/3/uL (2.02-8.40); PLATELET COUNT 117 10/3/uL (150-400); RBC DISTRIBUTION WIDTH 20.4 % (12.0-16.0); RED CELL COUNT 4.65 10/6/uL (4.7-6.1); WHITE BLOOD CELLS 5.9 10/3/uL (4.5-10.5)
[2016-07-16 05:27] LABS: MANUAL DIFF NO %
[2016-07-16 05:28] LABS: CHOLESTEROL 89 MG/DL (< 200)
[2016-07-16 05:57] LABS: ANISOCYTOSIS 1+ (5-10/OIF) (0-5/OIF); PLATELET ESTIMATE DEC (ADEQUATE)
[2016-07-17 05:21] LABS: BASOPHILS 0.2 %; BASOPHILS ABSOLUTE 0.01 10/3/uL (0.0-0.16); EOSINOPHILS 4.9 %; EOSINOPHILS ABSOLUTE 0.29 10/3/uL (0.0-0.53); HEMATOCRIT 42.1 % (40.0-51.0); HEMOGLOBIN 13.8 g/dL (13.6-17.8); IMMATURE GRANULOCYTES 0.2 %; IMMATURE GRANULOCYTES ABSOLUTE 0.01 10/3/uL (0.0-0.11); LYMPHOCYTES 13.4 %; MEAN CORPUS HGB CONC 32.8 g/dL (32.0-36.0); MEAN CORPUSCULAR HEMOGLOB 28.8 pg (26.0-34.0); MEAN CORPUSCULAR VOLUME 87.9 fL (80-100); MEAN PLATELET VOLUME 11.2 fL (9.2-13.0); MONOCYTES 9.9 %; MONOCYTES ABSOLUTE 0.59 10/3/uL (0.21-1.20); NEUTROPHILS 71.4 %; NEUTROPHILS ABSOLUTE 4.26 10/3/uL (2.02-8.40); PLATELET COUNT 118 10/3/uL (150-400); RBC DISTRIBUTION WIDTH 20.6 % (12.0-16.0); RED CELL COUNT 4.79 10/6/uL (4.7-6.1)
[2016-07-17 05:22] LABS: MANUAL DIFF NO %
[2016-07-17 05:27] LABS: CALCIUM, SERUM 8.7 MG/DL (8.5-10.4); CHLORIDE, SERUM 107 MMOL/L (96-112); CO2 (CARBON DIOXIDE) 23 MMOL/L (24-34); CREATININE 1.22 MG/DL (0.70-1.30); GFR AFRICAN AMERICAN 65 ML/MIN (>=60); GFR NON AFRICAN AMERICAN 56 ML/MIN (>=60); GLUCOSE, SERUM 101 MG/DL (60-99); POTASSIUM, SERUM 4.3 MMOL/L (3.5-5.3); SODIUM, SERUM 140 MMOL/L (135-148)
[2016-07-17 05:29] LABS: BUN (BLOOD UREA NITROGEN) 37 MG/DL (6-23)
[2016-07-17] MEDS ORDERED: IMDUR30 PO (09:15)
[2016-09-27] MEDS ORDERED: SINGULAIR1 PO (14:38)
== END 2016-07-17 11:38 | disposition home or self-care (01) | DRG 291 ==
LOC: ER 09:56 → 6NO 17:07
PROVIDERS: Emergency Medicine; Internal Medicine; Internal Medicine Cardiovascular Disease; Orthopaedic Surgery
PROC: 4B02XSZ Measurement of Cardiac Pacemaker, External Approach (ICD-10-PCS; principal; 2016-07-14)
DX: I13.0 Hypertensive heart and chronic kidney disease with heart failure and stage 1 through stage 4 chronic kidney disease, or unspecified chronic kidney disease (principal); I50.23 Acute on chronic systolic (congestive) heart failure; I71.2 Thoracic aortic aneurysm, without rupture; I48.2 Chronic atrial fibrillation; N18.3 Chronic kidney disease, stage 3 (moderate); Z79.02 Long term (current) use of antithrombotics/antiplatelets; E78.5 Hyperlipidemia, unspecified; I25.10 Atherosclerotic heart disease of native coronary artery without angina pectoris; I08.0 Rheumatic disorders of both mitral and aortic valves; D47.3 Essential (hemorrhagic) thrombocythemia; K57.30 Diverticulosis of large intestine without perforation or abscess without bleeding; R62.7 Adult failure to thrive; R63.4 Abnormal weight loss; I70.1 Atherosclerosis of renal artery; Z95.1 Presence of aortocoronary bypass graft; Z95.0 Presence of cardiac pacemaker; Z68.22 Body mass index [BMI] 22.0-22.9, adult; Z86.010 Personal history of colon polyps; Z85.850 Personal history of malignant neoplasm of thyroid; Z88.0 Allergy status to penicillin; Z88.5 Allergy status to narcotic agent
CPT/HCPCS: 71010; 80048; 80061; 81001; 82550; 82553; 82728; 82962; 83036; 83540; 83550; 83615; 83735; 83880; 84100; 84145; 84439; 84443; 84484; 85025; 85045; 85610; 85730; 93005; 93306; 93459; 93975; 96374; 99152; 99153; 99285; A9270-GY; C1769; C1894; J0360; J1940; J2250; J3010; Q9967